=== PATIENT | female | born 1930 | race Caucasian/White ===

== ENCOUNTER 2017-07-06 11:16 | Observation (INO) ==
--- NOTE | 2017-07-06 12:03 | Emergency Department Note ---
Disposition Clinical Impression: Lightheadedness, Heart palpitations Disposition: Admitted As Inpatient Condition: Good Time of Disposition: 15:42 General Adult HPI - General Chief complaint: ED General Medical Stated complaint: Spells of feeling faint Time Seen by Provider: 07/06/17 11:39 Source: patient Limitations: no limitations Nursing Notes Reviewed: Yes Vital Signs Reviewed: Yes - History of Present Illness HPI Narrative: Patient is a 86-year-old female complains of episodes of lightheadedness that have been suddenly and randomly while standing up, and while sitting comfortably at rest. The episodes that happen at rest post the patient sleep possibly having syncopal episodes. Patient denies any form of chest pain, shortness of breath or exertional dyspnea. She does admit to having sensation of fluttering in her chest prior to the onset of episodes of lightheadedness. She denies any history of prior cardiac events. She is being treated for hypertension and renal insufficiency but is not on dialysis. 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 Billingsley and Asians front window cashier is Dr. Forman. Patient states she is recently had some medication changes a few weeks ago. Dr. Billingsley decrease patient's metoprolol from 100 mg daily to 50 mg daily and her the event from [address] Forman increased patient's amlodipine from 5 mg to 10 mg daily. Patient states it was not until the change of her amlodipine and she started having the symptoms. She also complains of worsening bilateral edema. Of note: Patient's symptoms of lightheadedness does not include vertigo-like symptoms of dizziness. Pain Scale: 0 - Related Data Home Medications Medication Instructions Recorded Confirmed Ergocalciferol (VITAMIN D2) 2,000 unit PO BID 08/25/16 07/06/17 [Vitamin D2] Furosemide [Lasix] 40 mg PO Q3D 08/25/16 07/06/17 Acetaminophen [Tylenol] 1,000 mg PO Q6HR PRN 09/28/16 07/06/17 Allopurinol [Zyloprim 100 MG] 100 mg PO BID 07/06/17 07/06/17 Amlodipine Besylate 10 mg PO DAILY 07/06/17 07/06/17 Aspirin [Lo-Dose Aspirin EC] 81 mg PO DAILY 07/06/17 07/06/17 Metoprolol Succinate [Toprol Xl] 50 mg PO DAILY 07/06/17 07/06/17 Pantoprazole Sodium [Protonix] 40 mg PO DAILY 07/06/17 07/06/17 Valsartan [Valsartan] 80 mg PO DAILY 07/06/17 07/06/17 Allergies Allergy/AdvReac Type Severity Reaction Status Date / Time Penicillins Allergy Anaphylaxis Verified 07/06/17 13:12 Review of Systems: Patient describes no focal neurologic deficits weakness or paresthesias. Patient's daughter does not notice any gait deficits. Patient walks with a cane but has no change in ability to ambulate around her home. Patient denies any changes in vision, and hearing. All systems ED: reviewed and negative except as stated. Review of Systems: As Per HPI Constitutional: Denies: weakness Past Medical History - Past Medical History Attestation: Yes The following information was validated with the patient. Source: patient, nursing notes reviewed Medical history: Reports: arthritis, GERD, hypertension Psychiatric history: Reports: no psych history - Social History Smoking Status: Former smoker Smokeless Tobacco Status: No Alcohol use: Reports: none Drug use: Reports: none Physical Exam Vital Signs Temperature 98 F 07/06/17 11:32 Pulse Rate 75 07/06/17 11:32 Respiratory Rate 18 07/06/17 11:32 Blood Pressure 138/75 07/06/17 11:32 O2 Sat by Pulse Oximetry 96 07/06/17 11:32 Temperature 98 F 07/06/17 11:32 Pulse Rate 75 07/06/17 11:32 Respiratory Rate 18 07/06/17 11:32 Blood Pressure 138/75 07/06/17 11:32 O2 Sat by Pulse Oximetry 96 07/06/17 11:32 Oxygen Delivery Oxygen Delivery Room Air CONSTITUTIONAL: Well-appearing; well-nourished; A&O X 3, in no apparent distress HEAD: Normocephalic; atraumatic EYES: PERRL, no scleral icterus NOSE: The nose is normal in appearance without rhinorrhea NECK: No JVD or distended neck veins RESP: Normal chest excursion with respiration; breath sounds clear and equal bilaterally; no wheezes, rhonchi, or rales CARD: Regular rhythm, without murmurs, rub or gallop ABD: Non-distended; non-tender, soft, without rigidity, rebound or guarding,no pulsatile mass CHEST: No pain with palpation SKIN: Normal for age and race; warm and dry without diaphoresis ; no apparent lesions EXTREMITIES: Pulses are 2 plus and equal times 2 UE, bilateral 2+ pitting edema to lower extremities NEUROLOGICAL: Patient is alert and oriented times three. Cranial nerves III- XII are intact. Sensory and motor functions are intact. Strength is 5/5 for flexion and extension in all 4 extremities. Patellar DTRS are equal and intact. Finger to nose testing is equal and normal bilaterally. - General Limitations: no limitations General appearance: alert, in no apparent distress Course - Reevaluation(s) Reevaluation #1: Patient is a well, has no complaints. She is not having any recurrence of previously discussed symptoms. Time: 13:18 Reevaluation #2: Patient's labs came back unremarkable for any clinically pertinent findings. Current plan is for patient to be admitted for further evaluation. Patient understands agrees treatment plan currently has no complaints. Time: 13:54 - Consultations Consultation #1: Dr. Goldsmith the hospitalist as accepted patient for admission stable condition to telemetry bed at 1354 hrs. Time: 14:01 Vital Signs Temperature 98 F 07/06/17 11:32 Pulse Rate 75 07/06/17 11:32 Respiratory Rate 18 07/06/17 11:32 Blood Pressure 138/75 07/06/17 11:32 O2 Sat by Pulse Oximetry 96 07/06/17 11:32 Temperature 98.3 F 07/06/17 15:13 Pulse Rate 71 07/06/17 15:13 Respiratory Rate 16 07/06/17 15:13 Blood Pressure 130/66 07/06/17 16:18 O2 Sat by Pulse Oximetry 94 07/06/17 16:08 Oxygen Delivery Oxygen Delivery Room Air Medical Decision Making - [facility] Narrative Medical decision making narrative: Patient has symptoms of lightheadedness and possibly syncopal episodes while at rest that are concerning for possible dysrhythmia. Patient may also have factor of drug adverse reactions with her history of recent change of amlodipine from 5mg to 10 mg and these new symptoms occurring. No findings on evaluation and no recurrence of symptoms. Chest x-ray per radiology: IMPRESSION: 1. Cardiomegaly. 2. Calcific atherosclerosis aorta. 3. Chronic versus recurrent left pleural effusion versus pleural thickening and left basilar subsegmental atelectasis. Pneumonitis is a consideration. Patient has no difficulty breathing, patient's lung sounds are clear to auscultation bilaterally. Patient denies any symptoms of coughing and has no vital sign abnormalities. Patient's lab work was unremarkable for any clinically significant abnormalities. She has a history of renal insufficiency but her creatinine is lower than previous account. Even though patient has a clinically benign exam and evaluation I still recommend admission as patient is at risk for falls and worsening mortality and morbidity if she suffers significant injury secondary to a fall. Patient does live at home alone which is also concerning with reports of possible syncope. Recommend patient be admitted for further evaluation on telemetry to evaluate and monitor signs for dysrhythmia. Patient's own medications should also be investigated for possible medication adverse reaction. Patient understands and agrees to treatment plan for admission. Patient is accepted for admission by Dr. Goldsmith the hospitalist in stable condition to telemetry bed - Lab Data Lab results reviewed: Yes I reviewed the patient's lab results. Lab results narrative: Short CBC 07/06/17 Range/Units 12:26 WBC 10.9 (4.3-11.1) K/mcL Hgb 13.4 (11.5-15.4) g/dL Hct 41.0 (35.3-44.9) % Plt Count 261 (140-400) K/mcL Neutrophils # 4.9 (1.6-8.9) K/mcL BMP 07/06/17 Range/Units 12:26 Sodium 137 (136-145) mEq/L Potassium 4.5 (3.5-5.1) mEq/L Chloride 105 (98-107) mEq/L Carbon Dioxide 25 (23-29) mEq/L BUN 30 H (8-23) mg/dL Creatinine 1.31 H (0.60-1.20) mg/dL Glucose 105 (70-105) mg/dL Calcium 9.7 (8.6-10.3) mg/dL Cardiac Enzymes 07/06/17 Range/Units 12:26 Troponin I < 0.03 (< 0.04) ng/mL Urine 07/06/17 Range/Units 12:56 Urine Color Yellow (Yellow) Urine Clarity Clear (Clear) Urine pH 6.5 (5.0-8.0) pH Units Ur Specific [place] 1.013 (1.010-1.025) Urine Protein Negative (Neg-Trace) mg/dL Urine Glucose (UA) Normal (Normal) mg/dL Result diagrams: 07/06/17 12:26 07/06/17 12:26 Lab Results 07/06/17 07/06/17 07/06/17 Range/Units 12:26 12:26 12:26 WBC 10.9 (4.3-11.1) K/mcL RBC 4.45 (3.82-4.97) M/mcL Hgb 13.4 (11.5-15.4) g/dL Hct 41.0 (35.3-44.9) % MCV 92.1 (83.0-100.0) fL MCH 30.1 (28.0-33.3) pg MCHC 32.7 (31.6-35.5) g/dL RDW 15.3 H (11.5-14.5) % Plt Count 261 (140-400) K/mcL MPV 9.5 (9.4-12.4) fL Immature Gran % 0.5 (0-4) % Seg Neutrophils % 45.3 % Lymphocytes % 44.3 % Monocytes % 7.3 % Eosinophils % 1.9 % Basophils % 0.7 % Neutrophils # 4.9 (1.6-8.9) K/mcL Lymphocytes # 4.8 H (0.6-4.6) K/mcL Monocytes # 0.8 (0.0-1.3) K/mcL Eosinophils # 0.2 (0.0-0.6) K/mcL Basophils # 0.1 (0.0-0.2) K/mcL Sodium 137 (136-145) mEq/L Potassium 4.5 (3.5-5.1) mEq/L Chloride 105 (98-107) mEq/L Carbon Dioxide 25 (23-29) mEq/L BUN 30 H (8-23) mg/dL Creatinine 1.31 H (0.60-1.20) mg/dL Est GFR ( Amer) 47 L (> 60) Est GFR (Non-Af Amer) 39 L (> 60) BUN/Creatinine Ratio 23 (6-26) Glucose 105 (70-105) mg/dL Calculated Osmolality 291 (280-300) Calcium 9.7 (8.6-10.3) mg/dL Troponin I < 0.03 (< 0.04) ng/mL B-Natriuretic Peptide 222 H (Less than 100) pg/mL TSH 4.486 (0.340-5.600) mcIU/mL Free T4 0.90 (0.70-2.00) ng/dl Urine Color (Yellow) Urine Clarity (Clear) Urine pH (5.0-8.0) pH Units Ur Specific [place] (1.010-1.025) Urine Protein (Neg-Trace) mg/dL Urine Glucose (UA) (Normal) mg/dL Urine Ketones (Negative) mg/dL Urine Blood (Negative) Urine Nitrite (Negative) Urine Bilirubin (Negative) Urine Urobilinogen (Normal) mg/dL Ur Leukocyte Esterase (Negative) 07/06/17 Range/Units 12:56 WBC (4.3-11.1) K/mcL RBC (3.82-4.97) M/mcL Hgb (11.5-15.4) g/dL Hct (35.3-44.9) % MCV (83.0-100.0) fL MCH (28.0-33.3) pg MCHC (31.6-35.5) g/dL RDW (11.5-14.5) % Plt Count (140-400) K/mcL MPV (9.4-12.4) fL Immature Gran % (0-4) % Seg Neutrophils % % Lymphocytes % % Monocytes % % Eosinophils % % Basophils % % Neutrophils # (1.6-8.9) K/mcL Lymphocytes # (0.6-4.6) K/mcL Monocytes # (0.0-1.3) K/mcL Eosinophils # (0.0-0.6) K/mcL Basophils # (0.0-0.2) K/mcL Sodium (136-145) mEq/L Potassium (3.5-5.1) mEq/L Chloride (98-107) mEq/L Carbon Dioxide (23-29) mEq/L BUN (8-23) mg/dL Creatinine (0.60-1.20) mg/dL Est GFR ( Amer) (> 60) Est GFR (Non-Af Amer) (> 60) BUN/Creatinine Ratio (6-26) Glucose (70-105) mg/dL Calculated Osmolality (280-300) Calcium (8.6-10.3) mg/dL Troponin I (< 0.04) ng/mL B-Natriuretic Peptide (Less than 100) pg/mL TSH (0.340-5.600) mcIU/mL Free T4 (0.70-2.00) ng/dl Urine Color Yellow (Yellow) Urine Clarity Clear (Clear) Urine pH 6.5 (5.0-8.0) pH Units Ur Specific [place] 1.013 (1.010-1.025) Urine Protein Negative (Neg-Trace) mg/dL Urine Glucose (UA) Normal (Normal) mg/dL Urine Ketones Negative (Negative) mg/dL Urine Blood Negative (Negative) Urine Nitrite Negative (Negative) Urine Bilirubin Negative (Negative) Urine Urobilinogen Normal (Normal) mg/dL Ur Leukocyte Esterase Negative (Negative) - Radiology Data Radiology results reviewed: Yes I reviewed the patient's radiology results. Chest X-Ray 07/06/17 11:57 IMPRESSION: 1. Cardiomegaly. 2. Calcific atherosclerosis aorta. 3. Chronic versus recurrent left pleural effusion versus pleural thickening and left basilar subsegmental atelectasis. Pneumonitis is a consideration. D/ / Faizan Butler / Faizan Butler Interpreting Provider: Faizan Butler - EKG Data EKG #1 EKG attestation: Yes I reviewed and interpreted this EKG. EKG results narrative: EKG taken 07/06/2017 at 1238 hrs. shows a sinus rhythm at a rate of 60 beats minute with no acute ST elevations or depressions leads, no QRS widening or QT prolongation. There is T-wave inversion in lead 3 with low voltage across all leads. Previous EKG for comparison taken 05/09/2017 shows a sinus bradycardia with no acute ST elevations or depressions anyways, no QRS widening or QT prolongation. His EKG does not show T-wave inversion in lead 3
--- NOTE | 2017-07-06 12:19 | Emergency Department Note ---
Disposition Clinical Impression: Lightheadedness, Heart palpitations Disposition: Admitted As Inpatient Condition: Good General Adult HPI - General Chief complaint: ED General Medical Stated complaint: Spells of feeling faint Time Seen by Provider: 07/06/17 11:39 Source: patient Limitations: no limitations - History of Present Illness Pain Scale: 0 - Related Data Home Medications Medication Instructions Recorded Confirmed Ergocalciferol (VITAMIN D2) 2,000 unit PO BID 08/25/16 07/06/17 [Vitamin D2] Furosemide [Lasix] 40 mg PO Q3D 08/25/16 07/06/17 Acetaminophen [Tylenol] 1,000 mg PO Q6HR PRN 09/28/16 07/06/17 Allopurinol [Zyloprim 100 MG] 100 mg PO BID 07/06/17 07/06/17 Amlodipine Besylate 10 mg PO DAILY 07/06/17 07/06/17 Aspirin [Lo-Dose Aspirin EC] 81 mg PO DAILY 07/06/17 07/06/17 Metoprolol Succinate [Toprol Xl] 50 mg PO DAILY 07/06/17 07/06/17 Pantoprazole Sodium [Protonix] 40 mg PO DAILY 07/06/17 07/06/17 Valsartan [Valsartan] 80 mg PO DAILY 07/06/17 07/06/17 Allergies Allergy/AdvReac Type Severity Reaction Status Date / Time Penicillins Allergy Anaphylaxis Verified 07/06/17 13:12 Past Medical History - Past Medical History Medical history: Reports: arthritis, GERD, hypertension Psychiatric history: Reports: no psych history - Social History Smoking Status: Former smoker Smokeless Tobacco Status: No Alcohol use: Reports: none Drug use: Reports: none Physical Exam - General Limitations: no limitations General appearance: alert, in no apparent distress Course Vital Signs Temperature 98 F 07/06/17 11:32 Pulse Rate 75 07/06/17 11:32 Respiratory Rate 18 07/06/17 11:32 Blood Pressure 138/75 07/06/17 11:32 O2 Sat by Pulse Oximetry 96 07/06/17 11:32 Temperature 98.3 F 07/06/17 15:13 Pulse Rate 71 07/06/17 15:13 Respiratory Rate 16 07/06/17 15:13 Blood Pressure 130/66 07/06/17 16:18 O2 Sat by Pulse Oximetry 94 07/06/17 16:08 Oxygen Delivery Oxygen Delivery Room Air Medical Decision Making - Lab Data Result diagrams: 07/06/17 12:26 07/06/17 12:26 Lab Results 07/06/17 07/06/17 07/06/17 Range/Units 12:26 12:26 12:26 WBC 10.9 (4.3-11.1) K/mcL RBC 4.45 (3.82-4.97) M/mcL Hgb 13.4 (11.5-15.4) g/dL Hct 41.0 (35.3-44.9) % MCV 92.1 (83.0-100.0) fL MCH 30.1 (28.0-33.3) pg MCHC 32.7 (31.6-35.5) g/dL RDW 15.3 H (11.5-14.5) % Plt Count 261 (140-400) K/mcL MPV 9.5 (9.4-12.4) fL Immature Gran % 0.5 (0-4) % Seg Neutrophils % 45.3 % Lymphocytes % 44.3 % Monocytes % 7.3 % Eosinophils % 1.9 % Basophils % 0.7 % Neutrophils # 4.9 (1.6-8.9) K/mcL Lymphocytes # 4.8 H (0.6-4.6) K/mcL Monocytes # 0.8 (0.0-1.3) K/mcL Eosinophils # 0.2 (0.0-0.6) K/mcL Basophils # 0.1 (0.0-0.2) K/mcL Sodium 137 (136-145) mEq/L Potassium 4.5 (3.5-5.1) mEq/L Chloride 105 (98-107) mEq/L Carbon Dioxide 25 (23-29) mEq/L BUN 30 H (8-23) mg/dL Creatinine 1.31 H (0.60-1.20) mg/dL Est GFR ( Amer) 47 L (> 60) Est GFR (Non-Af Amer) 39 L (> 60) BUN/Creatinine Ratio 23 (6-26) Glucose 105 (70-105) mg/dL Calculated Osmolality 291 (280-300) Calcium 9.7 (8.6-10.3) mg/dL Troponin I < 0.03 (< 0.04) ng/mL B-Natriuretic Peptide 222 H (Less than 100) pg/mL TSH 4.486 (0.340-5.600) mcIU/mL Free T4 0.90 (0.70-2.00) ng/dl Urine Color (Yellow) Urine Clarity (Clear) Urine pH (5.0-8.0) pH Units Ur Specific [place] (1.010-1.025) Urine Protein (Neg-Trace) mg/dL Urine Glucose (UA) (Normal) mg/dL Urine Ketones (Negative) mg/dL Urine Blood (Negative) Urine Nitrite (Negative) Urine Bilirubin (Negative) Urine Urobilinogen (Normal) mg/dL Ur Leukocyte Esterase (Negative) 07/06/17 Range/Units 12:56 WBC (4.3-11.1) K/mcL RBC (3.82-4.97) M/mcL Hgb (11.5-15.4) g/dL Hct (35.3-44.9) % MCV (83.0-100.0) fL MCH (28.0-33.3) pg MCHC (31.6-35.5) g/dL RDW (11.5-14.5) % Plt Count (140-400) K/mcL MPV (9.4-12.4) fL Immature Gran % (0-4) % Seg Neutrophils % % Lymphocytes % % Monocytes % % Eosinophils % % Basophils % % Neutrophils # (1.6-8.9) K/mcL Lymphocytes # (0.6-4.6) K/mcL Monocytes # (0.0-1.3) K/mcL Eosinophils # (0.0-0.6) K/mcL Basophils # (0.0-0.2) K/mcL Sodium (136-145) mEq/L Potassium (3.5-5.1) mEq/L Chloride (98-107) mEq/L Carbon Dioxide (23-29) mEq/L BUN (8-23) mg/dL Creatinine (0.60-1.20) mg/dL Est GFR ( Amer) (> 60) Est GFR (Non-Af Amer) (> 60) BUN/Creatinine Ratio (6-26) Glucose (70-105) mg/dL Calculated Osmolality (280-300) Calcium (8.6-10.3) mg/dL Troponin I (< 0.04) ng/mL B-Natriuretic Peptide (Less than 100) pg/mL TSH (0.340-5.600) mcIU/mL Free T4 (0.70-2.00) ng/dl Urine Color Yellow (Yellow) Urine Clarity Clear (Clear) Urine pH 6.5 (5.0-8.0) pH Units Ur Specific [place] 1.013 (1.010-1.025) Urine Protein Negative (Neg-Trace) mg/dL Urine Glucose (UA) Normal (Normal) mg/dL Urine Ketones Negative (Negative) mg/dL Urine Blood Negative (Negative) Urine Nitrite Negative (Negative) Urine Bilirubin Negative (Negative) Urine Urobilinogen Normal (Normal) mg/dL Ur Leukocyte Esterase Negative (Negative) Attestation Statement - Attestation Attestation: I examined this patient and my medical decision-making was reviewed with the FARO DEALER/PA/Advanced Practice Nurse/Resident Physician. I agree with the documented findings, disposition and treatment plan as described except to the extent set forth below. I did speak with the patient and examined her and she does have complaint of dizzy feeling which is more lightheadedness than vertigo - she does not have vertigo - she has had her symptoms intermittently for the last several weeks. No numbness or weakness of the extremities, slurred speech, facial droop or confusion. No pain in the head, neck, chest, abdomen or back. No pain whatsoever. No vomiting or diarrhea. No blood in the urine or stool. She is bright and alert and well in appearance in the room. She is here with her daughter. Workup in progress. 1219 I did review the EKG showing normal sinus rhythm with a rate of 68 and without acute ischemic change 1246
[2017-07-06 12:39] LABS: Basophils # 0.1 K/mcL (0.0-0.2); Basophils % 0.7 %; Eosinophils # 0.2 K/mcL (0.0-0.6); Eosinophils % 1.9 %; Hemoglobin 13.4 g/dL (11.5-15.4); Immature Granulocytes % 0.5 % (0-4); Lymphocytes # 4.8 K/mcL (0.6-4.6); Lymphocytes % 44.3 %; Mean Corpuscular HGB Conc 32.7 g/dL (31.6-35.5); Mean Corpuscular Hemoglobin 30.1 pg (28.0-33.3); Mean Corpuscular Volume 92.1 fL (83.0-100.0); Mean Platelet Volume 9.5 fL (9.4-12.4); Monocytes # 0.8 K/mcL (0.0-1.3); Monocytes % 7.3 %; Neutrophils # 4.9 K/mcL (1.6-8.9); Platelet Count 261 K/mcL (140-400); Red Blood Count 4.45 M/mcL (3.82-4.97); Red Cell Distribution Width 15.3 % (11.5-14.5); Segmented Neutrophils % 45.3 %
[2017-07-06 13:02] LABS: BUN/Creatinine Ratio 23 (6-26); Blood Urea Nitrogen 30 mg/dL (8-23); Calcium 9.7 mg/dL (8.6-10.3); Carbon Dioxide 25 mEq/L (23-29); Chloride 105 mEq/L (98-107); Glucose 105 mg/dL (70-105); Osmolality,Calculated 291 (280-300); Potassium 4.5 mEq/L (3.5-5.1); Sodium 137 mEq/L (136-145); eGFR For African Americans 47 (> 60); eGFR For Non-African Americans 39 (> 60)
[2017-07-06 13:09] LABS: Troponin I < 0.03 ng/mL (< 0.04)
[2017-07-06 13:14] LABS: Bilirubin,Urine Negative (Negative); Blood,Urine Negative (Negative); Clarity,Urine Clear (Clear); Color,Urine Yellow (Yellow); Glucose,Urine (UA) Normal (Normal); Ketones,Urine Negative (Negative); Leukocyte Esterase,Urine Negative (Negative); Nitrite,Urine Negative (Negative); PH,Urine 6.5 pH Units (5.0-8.0); Protein,Urine Negative (Neg-Trace); Specific Gravity,Urine 1.013 (1.010-1.025); Urobilinogen,Urine Normal (Normal)
--- NOTE | 2017-07-06 14:57 | Electrocardiograph Report ---
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
[2017-07-06] MEDS ORDERED: Naloxone 0.4 MG/ML INJ IVP PRN (15:23)
[2017-07-06] MEDS ORDERED: Acetaminophen 325 MG TABLET PO PRN (15:23)
[2017-07-06] MEDS ORDERED: Furosemide 40 MG TABLET PO SCH (15:30)
--- NOTE | 2017-07-06 15:47 | Internal Med History&Physical ---
Addendum entered and electronically signed by Patrick Edouard CNP 16:38: Patient is Observation, not Inpatient. Original Note: <Patrick Edouard - Last Filed: 07/06/17 16:30> Date of Encounter: 07/06/17 Time of Encounter: 14:45 Assessment and Plan (1) Lightheadedness Current visit: Yes Status: Acute Acute dizziness and lightheadedness for the past several weeks that has become worse in past 48 hours. Palpitations, flushing, chills accompany. Episodes happen at rest and w/exertion. No CVA/TIA hx. MRI of head/brain ordered to r/o ischemia/infarct. Bilateral carotid Doppler imaging. TSH/Free T4. Will adjust amlodipine dosing to 5 mg daily down from 10 mg as pt reports sx worsened when increased to 10 mg. EKG. Continuous cardiac telemetry. Echocardiogram done in shows LVEF of 60-65 percent, normal LV chamber size and function, mild concentric left ventricular hypertrophy, mild left ventricular diastolic dysfunction, normal right ventricular structure and function, estimating RSVP 36 mmHg, and borderline mild pulmonary hypertension. Falls/safety precautions, up with assist, bed rest w/bedside commode w/assist only. PT/OT consults ordered. Orthostatic BPs and VS. Pt. discussed w/Dr. Goldsmith who agrees w/plan of care. Pt. is moderate risk for further morbidity based on current sx that have worsened requiring MRI, CHF sx requiring IVP lasix and elevated BNP, cardiac palpitations, hx, and risk factors. Inpatient. (2) Heart palpitations Current visit: Yes Status: Acute Acute heart palpitations accompanying dizzy/lightheaded episodes. Also reports chills and flushing. Denies cardiac hx but has familial hx of CHF/[place]. Echocardiogram dated 05/09/17 shows LVEF of 60-65 percent, normal LV chamber size and function, mild concentric left ventricular hypertrophy, mild left ventricular diastolic dysfunction, normal right ventricular structure and function, estimating RSVP 36 mmHg, and borderline mild pulmonary hypertension. Continuous cardiac telemetry. TSH/Free T4 ordered. Falls/safety precautions. Monitor pt. closely. (3) Pedal edema Current visit: Yes Status: Acute Acute on chronic bilateral pedal edema in LEs. Pt. takes PO lasix Q3D. Will hold PO lasix and administer 40 mg IVP lasix BID. Monitor I&O and daily weight. (4) Wound of left lower extremity Current visit: Yes Status: Acute Acute wound located on left foot near fifth digit. Painful to touch, but closed. Wound Care consult and daily wound care ordered. Falls/safety precautions. Qualifiers: Encounter type: initial encounter Qualified Code(s): S81.802A - Unspecified open wound, left lower leg, initial encounter (5) GERD (gastroesophageal reflux disease) Current visit: Yes Status: Chronic Hx of chronic GERD. Zofran 4 mg Q6HR PRN IVP. Continue pts. PO Protonix. Qualifiers: Esophagitis presence: esophagitis presence not specified Qualified Code(s) : K21.9 - Gastro-esophageal reflux disease without esophagitis (6) Arthritis Current visit: Yes Status: Chronic Hx of chronic arthritis. Tylenol 650 mg Q6HR for pain. Will add Hydrocodone if Tylenol not effective. (7) HTN (hypertension) Current visit: Yes Status: Chronic Hx of chronic HTN. Monitor pt. and VS. Continue patient's metoprolol. Will adjust patient's amlodipine dosing from 10 mg to 5 mg daily due to report of increase in symptoms with increased to 10 mg. Monitor pt. Qualifiers: Hypertension type: essential hypertension Qualified Code(s): I10 - Essential (primary) hypertension (8) DVT prophylaxis Current visit: Yes Status: Acute Heparin 5,000 units SQ Q8 for DVT prophylaxis. Monitor pt. for signs of bleeding. Internal Medicine - H&P: HPI Chief complaint: Dizziness/Lightheadedness Admitted From: Emergency Dept Plans for Post Hospital Care: Home History of present illness: Ms. Treviño is a 86 year old female w/PMH of arthritis, GERD, and HTN presents from the ED w/CC of episodes of feeling dizzy/lightheaded for the last several weeks w/worsening sx over the past two days. Pt. states sx occur at rest and w/ activity. More prominent w/positional changes. Pt. reports feeling flushed, palpitations, and having chills during episodes as well. States episodes last several seconds then resolve. Denies home O2 use; hx of falls, CVA/TIA, or cardiac hx. Reports amlodipine dosing changed in April from 10 mg to 5 mg and then back to 10 mg. States sx worsened w/increased dosing. Reports increase in bilateral pedal edema w/medication changes. Denies recent illness, fever, vomiting, headache, changes in vision, chest pain, shortness of breath, cough, chest congestion, abdominal pain, diarrhea, constipation, numbness, tingling, or syncope. Past Med Surg Social Fam HX - Past Medical History Source: patient, old records reviewed, obtained from family Medical history: arthritis, GERD, hypertension Psychiatric history: no psych history - Social History Smoking Status: Former smoker Packs per day: Patient states she tried it and didn't continue Smokeless Tobacco Status: No Alcohol use: none Drug use: none Current living situation: Home, With Family Activity Level: Independent ambulation, Uses cane/walker Recent Out of Country Travel Within the Last 8 Weeks: No Exposure or Possible Exposure to Illness During Travel: No - Family History Father Race: Family Member Ethnicity: Non- Living Status: Age at : 75 Cause of : [place] Hx Family Cardiac Disorders: Yes ([place], HTN, HLD) Mother Race: Family Member Ethnicity: Non- Living Status: Age at : 72 Cause of : Lung cancer Hx Family Cancer: Yes (Lung) Brother Race: Family Member Ethnicity: Non- Living Status: Age at : 60 Cause of : Cancer (type unknown) Hx Family Cancer: Yes Sister Race: Family Member Ethnicity: Non- Living Status: Age at : 62 Cause of : CHF Hx Family Cardiac Disorders: Yes (CHF) Internal Medicine - H&P: Meds Ergocalciferol (VITAMIN D2) [Vitamin D2] 2,000 unit PO BID 08/25/16 [History] Furosemide [Lasix] 40 mg PO Q3D 08/25/16 [History] Acetaminophen [Tylenol] 1,000 mg PO Q6HR PRN 09/28/16 [History] Allopurinol [Zyloprim 100 MG] 100 mg PO BID 07/06/17 [History] Amlodipine Besylate 10 mg PO DAILY 07/06/17 [History] Aspirin [Lo-Dose Aspirin EC] 81 mg PO DAILY 07/06/17 [History] Metoprolol Succinate [Toprol Xl] 50 mg PO DAILY 07/06/17 [History] Pantoprazole Sodium [Protonix] 40 mg PO DAILY 07/06/17 [History] Valsartan [Valsartan] 80 mg PO DAILY 07/06/17 [History] 3 Allergy/AdvReac Type Severity Reaction Status Date / Time Penicillins Allergy Anaphylaxis Verified 07/06/17 13:12 All Systems PM: A 10-system review of systems was performed and is negative for pertinent findings except as documented above in the HPI. - Constitutional Constitutional: as per HPI, chills, weakness, no fever(s), no night sweats - EENT Eyes: no change in vision, no discharge, no pain, no photophobia Ears: no ear discharge, no ear pain, no tinnitus Nose, mouth and throat: no dysphagia, no nasal discharge, no neck pain, no sore throat - Breasts Breasts: as per HPI - Cardiovascular Cardiovascular ROS IM: as per HPI, edema (Bilateral pedal edema in LEs), lightheadedness, palpitations, no chest pain, no diaphoresis, no dyspnea, no syncope - Respiratory Respiratory: as per HPI, no cough, no dyspnea, no wheezing, no excessive phlegm production - Gastrointestinal Gastrointestinal: no abdominal pain, no diarrhea, no hematemesis, no hematochezia, no melena, no nausea, no vomiting - Genitourinary Genitourinary: no change in urinary stream, no dysuria, no flank pain, no hematuria Menstruation: as per HPI - Musculoskeletal Musculoskeletal ROS IM: no numbness, no tingling - Integumentary Integumentary IM: no rash, no unusual bruising - Neurological Neurological ROS: as per HPI, dizziness, no confusion, no convulsions, no focal weakness, no numbness, no tingling, no tremor(s) - Psychiatric Psychiatric: as per HPI - Endocrine Endocrine IM: as per HPI - Hematologic/Lymphatic Hematologic/Lymphatic: no easy bruising - Allergic/Immunologic Allergic/Immunologic: as per HPI - Constitutional Vitals: Temp Pulse Resp BP Pulse Ox 98.3 F 71 16 143/74 94 07/06/17 15:13 07/06/17 15:13 07/06/17 15:13 07/06/17 15:13 07/06/17 15:13 General appearance: Present: cooperative, A&O X 3, morbidly obese, pleasant, no acute distress, answers questions appropriately - Head Head exam: Present: atraumatic, normocephalic - Eye Eye exam: Present: PERRL, conjuntiva pink, sclera anicteric Pupils: Present: PERRL - ENT ENT exam: Present: normal exam - Neck Neck exam general surgery: Present: normal inspection, supple, trachea midline. Absent: lymphadenopathy - Respiratory Respiratory exam: Present: CTAB. Absent: accessory muscle use, rales, rhonchi, wheezes - Cardiovascular Cardiovascular exam: Present: RRR, +S1, +S2. Absent: diastolic murmur, gallop, rubs, systolic murmur - GI/Abdominal GI/Abdominal exam: Present: normal bowel sounds, soft, no peritoneal signs. Absent: distended, tenderness - Rectal Rectal exam: Present: deferred - Additional comments: exam deferred. - Extremities Exam Extremities exam: Present: pedal edema (2+ pitting edema in bilateral LEs), warm , radial pulses palpable and symmetrical. Absent: calf tenderness, cyanotic - Back Exam Back exam: Present: normal inspection - Neurological Exam Neurological exam: Present: CN II-XII intact, oriented X3, no focal deficits. Absent: pronater drift, facial droop, speech deficit - Psychiatric Psychiatric exam: Present: normal affect, normal mood - Skin Skin exam: Present: dry, intact Internal Med - H&P Results - Labs CBC & Chem 7: 07/06/17 12:26 07/06/17 12:26 - Diagnostic Studies Chest x-ray Additional comments: Impressions Chest X-Ray 07/06/17 11:57 IMPRESSION: 1. Cardiomegaly. 2. Calcific atherosclerosis aorta. 3. Chronic versus recurrent left pleural effusion versus pleural thickening and left basilar subsegmental atelectasis. Pneumonitis is a consideration. D/ / Faizan Butler / Faizan Butler Interpreting Provider: Faizan Butler <Ron Goldsmith - Last Filed: 07/06/17 17:15> Date of Encounter: 07/06/17 Internal Medicine - H&P: HPI History of present illness: Ms. Treviño is a 86 year old female All Systems PM: A 10-system review of systems was performed and is negative for pertinent findings except as documented above in the HPI. - Constitutional Vitals: Temp Pulse Resp BP Pulse Ox 98.3 F 71 16 130/66 94 07/06/17 15:13 07/06/17 15:13 07/06/17 15:13 07/06/17 16:18 07/06/17 16:08 Internal Med - H&P Results - Labs CBC & Chem 7: 07/06/17 12:26 07/06/17 12:26 - Attending Attestation Patient is seen and examined independently, patient currently denies any symptoms. Her vitals stable. The patient is alert and oriented 3 loss of clear heart rate is regular. No leg swellings. Abdominal soft and no tenderness. discussed the case with physician kennel assistant, I agree with Patrick's H&P
[2017-07-06] MEDS ORDERED: Ondansetron 4 MG/2 ML VIAL IVP PRN (16:12)
[2017-07-06 16:20] LABS: Thyroid Stimulating Hormone 4.486 mcIU/mL (0.340-5.600)
[2017-07-06] MEDS: Furosemide 40 MG/4 ML VIAL IVP SCH ×2 (17:20→20:48)
[2017-07-06] MEDS: *HR* Heparin 5,000 UNIT/ML VIAL SQ SCH (20:50)
[2017-07-06] MEDS: Cholecalciferol (D-3) 1,000 UNIT TABLET PO SCH (20:50)
[2017-07-07 04:36] LABS: Basophils # 0.1 K/mcL (0.0-0.2); Basophils % 0.5 %; Eosinophils # 0.2 K/mcL (0.0-0.6); Eosinophils % 1.7 %; Hematocrit 37.7 % (35.3-44.9); Hemoglobin 12.3 g/dL (11.5-15.4); Immature Granulocytes % 0.3 % (0-4); Lymphocytes # 5.9 K/mcL (0.6-4.6); Lymphocytes % 45.1 %; Mean Corpuscular HGB Conc 32.6 g/dL (31.6-35.5); Mean Corpuscular Hemoglobin 29.9 pg (28.0-33.3); Mean Corpuscular Volume 91.5 fL (83.0-100.0); Mean Platelet Volume 9.9 fL (9.4-12.4); Monocytes # 1.1 K/mcL (0.0-1.3); Monocytes % 8.1 %; Neutrophils # 5.8 K/mcL (1.6-8.9); Platelet Count 245 K/mcL (140-400); Red Blood Count 4.12 M/mcL (3.82-4.97); Red Cell Distribution Width 15.3 % (11.5-14.5); Segmented Neutrophils % 44.3 %
[2017-07-07 04:48] LABS: Albumin 3.6 g/dL (3.5-5.7); Albumin/Globulin Ratio 1.2 (1.1-2.2); Bilirubin,Total 0.7 mg/dL (0.3-1.0); Calcium 9.4 mg/dL (8.6-10.3); Chol/HDL Ratio 4.4 (0-4.9); Globulin 2.9 g/dL (2.4-3.5); Magnesium 2.1 mg/dL (1.6-2.6); Potassium 3.9 mEq/L (3.5-5.1); Total Protein 6.5 g/dL (6.4-8.9)
[2017-07-07] MEDS: *HR* Heparin 5,000 UNIT/ML VIAL SQ SCH (06:30)
[2017-07-07 07:47] VITALS: BP 114/66
[2017-07-07] MEDS ORDERED: amLODIPine 5 MG TABLET PO SCH (09:00)
[2017-07-07] MEDS ORDERED: Metoprolol XL (24 HR) Succ 50 MG TAB.ER.24H PO SCH (09:00)
[2017-07-07] MEDS ORDERED: Aspirin Enteric Coated 81 MG Tablet PO SCH (09:00)
[2017-07-07] MEDS ORDERED: Valsartan 80 MG TABLET PO SCH (09:00)
[2017-07-07] MEDS: Cholecalciferol (D-3) 1,000 UNIT TABLET PO SCH (10:20)
[2017-07-07] MEDS: Furosemide 40 MG/4 ML VIAL IVP SCH (10:20)
--- NOTE | 2017-07-07 10:51 | Discharge Summary ---
- NOTES TO OUTPATIENT PROVIDER Notes to Outpatient Provider: Please follow up with PCP as scheduled on 07/09/17. Recheck BMP (renal function) and CBC (mild leukocytosis) at that time. Orders not resulted at time of discharge: Pending orders 07/06/17 15:14 EKG [ECG 12 lead ECG] [ECG] Stat 07/07/17 03:24 A1C [Hgb A1C] AM 0400 07/08/17 04:00 Complete Blood Count [HEME] AM 0400 Comprehensive Metabolic Panel AM 0400 07/09/17 04:00 Complete Blood Count [HEME] AM 0400 Comprehensive Metabolic Panel AM 0400 07/10/17 04:00 Complete Blood Count [HEME] AM 0400 Comprehensive Metabolic Panel AM 0400 Date of Encounter: 07/07/17 Time of Encounter: 10:50 - Discharge Diagnosis (1) Lightheadedness Priority: Primary Status: Resolved (2) Heart palpitations Priority: Secondary Status: Resolved (3) Pedal edema Priority: Secondary Status: Chronic (4) Wound of left lower extremity Priority: Secondary Status: Acute Qualifiers: Encounter type: initial encounter Qualified Code(s): S81.802A - Unspecified open wound, left lower leg, initial encounter (5) Arthritis Priority: Secondary Status: Chronic (6) GERD (gastroesophageal reflux disease) Priority: Secondary Status: Chronic Qualifiers: Esophagitis presence: esophagitis presence not specified Qualified Code(s) : K21.9 - Gastro-esophageal reflux disease without esophagitis (7) HTN (hypertension) Priority: Secondary Status: Chronic Qualifiers: Hypertension type: essential hypertension Qualified Code(s): I10 - Essential (primary) hypertension (8) DVT prophylaxis Priority: Secondary Status: Acute Hospital course: Ms. Treviño is a 86 year old female admitted for lightheadedness and palpitations. She was admitted for observation to general medical floor with telemetry. EKG the next day was unremarkable, and unchanged from previous. No events on telemetry. MRI head showed no acute process. All symptoms resolved overnight, with no further episodes of lightheadedness or palpitations. Amlodipine was decreased back to 5 mg QD at admission, and BP improved. Symptoms could have been explained by hypotension, as symptoms started after amlodipine dose was increased. We will discharge home with lower amlodipine dose. She was diuresed with IV lasix. UOP was good. There was mild bump up in creatinine, likely secondary to diuresis. She will resume home lasix Q3D. She will follow up with PCP as scheduled on 07/09/17. BMP and CBC can be rechecked at that time. Patient has met maximum benefit of this hospitalization and will be discharged home in stable condition. Discharge discussed with: patient, family, nurse - Time Spent with Patient Total time spent providing and/or coordinating discharge services: Less than 30 minutes - Discharge Medications Prescriptions: amLODIPine [Norvasc] 5 mg PO DAILY 7 Days #7 tablet Home Medications: Ergocalciferol (VITAMIN D2) [Vitamin D2] 2,000 unit PO BID 08/25/16 [History] Furosemide [Lasix] 40 mg PO Q3D 08/25/16 [History] Acetaminophen [Tylenol] 1,000 mg PO Q6HR PRN 09/28/16 [History] Allopurinol [Zyloprim 100 MG] 100 mg PO BID 07/06/17 [History] Aspirin [Lo-Dose Aspirin EC] 81 mg PO DAILY 07/06/17 [History] Metoprolol Succinate [Toprol Xl] 50 mg PO DAILY 07/06/17 [History] Pantoprazole Sodium [Protonix] 40 mg PO DAILY 07/06/17 [History] Valsartan 80 mg PO DAILY 07/06/17 [History] amLODIPine [Norvasc] 5 mg PO DAILY 7 Days #7 tablet 07/07/17 [Rx] Allergies/Adverse Reactions: 3 Allergy/AdvReac Type Severity Reaction Status Date / Time Penicillins Allergy Anaphylaxis Verified 07/06/17 13:12 Date of admission: 07/06/17 14:08 Primary care physician: Artem Lindsay MD Consults: 07/06/17 15:25 Consult to Occupational Therapy [CONS] Routine Comment: Evaluate, develop and implement POC Reason for Consult: Patient reports episodes of becoming dizzy/lightheaded, sometimes w/positional changes. Please assess patient for ambulation strength, safety, stability, and possible home assistive/ rehabilitation needs for post-discharge planning. Does patient have active BEDREST order?: Yes Is patient medically & hemodynamically stable?: Yes Patient assessed for mobility or mobilized this visit?: No Consult to Manager Psychology [CONS] Routine Reason for SW Consult: Please assess patient for possible home needs for post -discharge planning. 07/06/17 15:26 Consult to Physical Therapy [CONS] Routine Comment: Evaluate, develop and implement POC Reason for Consult: Patient reports episodes of becoming dizzy/lightheaded, sometimes w/positional changes. Please assess patient for ambulation strength, safety, stability, and possible home assistive/ rehabilitation needs for post-discharge planning. Does patient have active BEDREST order?: Yes Is patient medically & hemodynamically stable?: Yes Patient assessed for mobility or mobilized this visit?: No 07/06/17 15:36 Consult to Wound Care [CONS] Routine Reason for Consult: Patient reports painful area on left foot near fifth digit. Please assess for recommendations of daily wound care. Call Completed: No Discharging clinician: Luis Webb Anticipated date of discharge: 07/07/17 - Constitutional Vitals: Temp Pulse Resp BP Pulse Ox 98.1 F 67 16 114/66 93 07/07/17 07:41 07/07/17 07:41 07/07/17 07:41 07/07/17 07:41 07/07/17 07:41 General appearance: Present: cooperative, A&O X 3, morbidly obese, pleasant, no acute distress, answers questions appropriately - Respiratory Respiratory exam: Present: CTAB. Absent: accessory muscle use, rales, rhonchi, wheezes Additional comments: Normal WOB - Cardiovascular Cardiovascular exam: Present: RRR, +S1, +S2. Absent: diastolic murmur, gallop, rubs, systolic murmur Additional comments: 2+ pitting BLE edema - GI/Abdominal GI/Abdominal exam: Present: normal bowel sounds, soft. Absent: distended, hepatomegaly, mass, splenomegaly, tenderness - Psychiatric Psychiatric exam: Present: normal affect, normal mood. Absent: anxious, depressed - Skin Skin exam: Present: dry, intact, warm. Absent: cyanosis, rash - Patient Status Disposition: Home, Self-Care Condition: Good Overall status at discharge: patient is back to baseline - Discharge Instructions Follow Up With: Artem Lindsay MD [Primary Care Provider] - Additional Instructions: Please follow up with PCP as scheduled on 07/09/17. Recheck BMP (renal function) and CBC (mild leukocytosis) at that time. - Diet and Activity Activity: resume usual activities as tolerated Diet: low fat, low cholesterol, low salt diet, other (Cardiac)
[2017-07-07 12:36] LABS: Estimated Average Glucose 111 mg/dl; Hemoglobin A1C 5.5 %
--- NOTE | 2017-07-09 12:22 | Electrocardiograph Report ---
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
== END 2017-07-07 11:46 | disposition home or self-care (01) ==
LOC: EMEROO 11:16 → 2ANU 11:16
PROVIDERS: ADMIT Hospitalist; ATTEND Internal Medicine